=== PATIENT | male | born 1955 | race Two or more races ===

== ENCOUNTER 2025-01-28 11:28 | Outpatient (CLI) | payer OTHER ==
[2025-01-28 12:12] LABS: Anion Gap 8 (5-15); Carbon Dioxide 26 mmol/L (20-31); Chloride 102 mmol/L (98-107); Potassium 4.5 mmol/L (3.5-5.1); Sodium 136 mmol/L (136-145)
[2025-01-28 12:13] LABS: Calcium 9.7 mg/dL (8.7-10.4)
[2025-01-28 12:18] LABS: BUN/Creatinine Ratio 10.9 (10.0-20.0); Blood Urea Nitrogen 14 mg/dL (9-23)
[2025-01-28 12:19] LABS: Glucose 263 mg/dL (74-106)
== END 2025-01-28 17:00 | disposition home or self-care (01) ==
LOC: LAB 11:28
PROVIDERS: ATTEND Internal Medicine
DX: I10 Essential (primary) hypertension (principal); E11.65 Type 2 diabetes mellitus with hyperglycemia; L84 Corns and callosities; Z68.27 Body mass index [BMI] 27.0-27.9, adult
CPT/HCPCS: 36415; 80048; 83036